=== PATIENT | female | born 2000 | race Caucasian/White ===

== ENCOUNTER 2021-12-05 00:41 | Emergency (ER) | payer BC ==
[~2021-12-05] VITALS: Ht 165.1 cm; Wt 55.3 kg
[2021-12-05] MEDS ORDERED: CLARITIN10 M1 PO (00:51)
[2021-12-05] MEDS ORDERED: NAPROXEN500 MG PO (02:39)
[2021-12-05] MEDS ORDERED: METRONIDAZOLE500 MG PO (02:39)
== END 2021-12-05 02:46 | disposition home or self-care (01) ==
LOC: EMR PED 00:41
DX: N76.0 Acute vaginitis (principal); N39.0 Urinary tract infection, site not specified